=== PATIENT | female | born 1980 | race Caucasian/White ===

== ENCOUNTER 2020-12-31 08:19 | Emergency (ER) | payer MEDICAID, OTHER ==
[~2020-12-31] VITALS: Ht 160 cm; Wt 46.8 kg
[2020-12-31 08:41] VITALS: BP 120/77
[2020-12-31] MEDS ORDERED: IBUP-1984 PO (09:57)
[2020-12-31] MEDS ORDERED: CLIN300C54 PO (09:57)
[2020-12-31] MEDS ORDERED: HYDR-3964 PO (09:58)
== END 2020-12-31 10:13 | disposition home or self-care (01) ==
LOC: ER 08:19
DX: K04.7 Periapical abscess without sinus (principal); R11.0 Nausea; K08.89 Other specified disorders of teeth and supporting structures; R22.0 Localized swelling, mass and lump, head; Z88.1 Allergy status to other antibiotic agents; Z79.2 Long term (current) use of antibiotics
CPT/HCPCS: 99283

== ENCOUNTER 2023-06-06 22:38 | Emergency (ER) | payer MEDICAID, OTHER ==
[~2023-06-06] VITALS: Ht 160 cm; Wt 46.8 kg
[2023-06-07] MEDS ORDERED: CLIN300C63 PO (03:09)
[2023-06-07] MEDS ORDERED: CEPH-585 PO (03:09)
[2023-06-07] MEDS: cephalexin 500mg capsule PO ONE (03:44)
[2023-06-07] MEDS: ondansetron 4mg rapidly disintigrating tab PO ONE (03:44)
[2023-06-07] MEDS: clindamycin 150mg capsule PO ONE (03:45)
[2023-06-07] MEDS: TETanus/Pertussis (Acell)/Diphther VAC/PF (Tdap-Adult) 0.5ml syringe IMVAC ONE (03:46)
[2023-06-07 04:24] VITALS: BP 123/68; PULSE 86; RESP 16; TEMP 99; O2SAT 99
[2023-06-07] MEDS ORDERED: IBUP-1986 PO (04:34)
[2023-06-07] MEDS ORDERED: ONDA8TAB13 PO (04:34)
== END 2023-06-07 04:31 | disposition home or self-care (01) ==
LOC: ER 22:39
DX: L03.211 Cellulitis of face (principal); Z88.1 Allergy status to other antibiotic agents
CPT/HCPCS: 90471; 90715; 99283; 99284

== ENCOUNTER 2024-04-16 11:57 | Emergency (ER) | payer MEDICAID ==
[~2024-04-16] VITALS: Ht 160 cm; Wt 63.6 kg
[~2024-04-16 11:57] MED LIST: IBUP-1986 PO; ONDA-245 PO
[2024-04-16 13:35] LABS: URINE HCG NEGATIVE (NEG)
[2024-04-16 13:36] VITALS: TEMP 97.8
[2024-04-16 13:43] LABS: URINE AMPHETAMINE SCREEN POSITIVE (Neg); URINE BARBITUATE SCREEN NEGATIVE (Neg); URINE BENZODIAZEPINES SCREEN NEGATIVE (Neg); URINE CANNABINOID SCREEN POSITIVE (Neg); URINE COCAINE SCREEN NEGATIVE (Neg); URINE METHADONE SCREEN POSITIVE (Neg); URINE OPIATE SCREEN NEGATIVE (Neg); URINE PHENCYCLIDINE SCREEN NEGATIVE (Neg)
[2024-04-16 14:34] LABS: BILIRUBIN,URINE NEGATIVE (Neg); CLARITY,URINE CLEAR (Clear); COLOR,URINE YELLOW (Yellow); GLUCOSE, URINE NEGATIVE (Neg); KETONES,URINE NEGATIVE (Neg); LEUKOCYTE ESTERASE ,URINE SMALL (Neg); NITRITES, URINE NEGATIVE (Neg); OCCULT BLOOD,URINE NEGATIVE (Neg); PROTEIN,URINE NEGATIVE (Neg); UROBILINOGEN,URINE 0.2 E.U/dL (0.2-1.0)
[2024-04-16 14:35] LABS: RBC,URINE 0-2 /HPF (0-2); UA COLLECTION TYPE CLN CATCH MIDSTREAM
[2024-04-16 14:36] LABS: BACTERIA,URINE FEW /HPF (Neg); MUCUS STRANDS FEW /LPF (Neg); SQUAMOUS EPITHELIAL CELL,UR FEW /LPF (FEW)
[2024-04-16 15:31] LABS: BASOPHILS % (AUTO) 0.4 % (0-1); EOSINOPHILS # (AUTO) 0.1 X10'3 (0-0.9); EOSINOPHILS % (AUTO) 1.3 % (0-6); HEMATOCRIT 43.6 % (35.0-45.0); HEMOGLOBIN 14.6 g/dl (12.0-16.0); LYMPHOCYTES # (AUTO) 1.9 X10'3 (1.1-4.8); LYMPHOCYTES % (AUTO) 18.7 % (21-51); MEAN CORPUSCULAR HEMOGLOBIN 29.8 PG (27.0-31.0); MEAN CORPUSCULAR HGB CONC 33.5 g/dL (33.0-36.5); MEAN PLATELET VOLUME 8.6 FL (7.4-10.4); MONOCYTES # (AUTO) 0.6 X10'3 (0-0.9); MONOCYTES % (AUTO) 6.3 % (2-12); NEUTROPHILS # (AUTO) 7.3 X10'3 (1.8-7.7); NEUTROPHILS % (AUTO) 73.3 % (42-75); PLATELET COUNT 190 X10'3 (140-440); RED CELL DISTRIBUTION WIDTH 13.5 % (11.5-14.5); WHITE BLOOD COUNT 9.9 X10'3 (4.5-11.0)
[2024-04-16 16:00] LABS: ALBUMIN 3.6 G/DL (3.4-5.0); ANION GAP 11 (8-16); BLOOD UREA NITROGEN 10 MG/DL (7-18); CALCIUM 8.4 MG/DL (8.5-10.1); CHLORIDE 102 MMOL/L (99-107); GLUCOSE 105 MG/DL (70-104); SODIUM 137 MMOL/L (135-145); TOTAL CARBON DIOXIDE 23.8 MMOL/L (24-32); eCRCL 148 ML/MIN; eGFR > 90 ML/MIN
[2024-04-16] MEDS: methylnaltrexone br 12mg/0.6ml inj***SubQ only SQ STA (16:11)
[2024-04-16] MEDS: sennosides/docusate sodium tablet PO STA (16:11)
[2024-04-16] MEDS: ketorolac trometh 30MG/ML vial 30 MG/ML VIAL IM ONE (16:12)
[2024-04-16] MEDS: polyethylene glycol 3350 17gm powd pack PO STA (16:12)
[2024-04-16] MEDS ORDERED: SENN-36 PO (16:37)
[2024-04-16] MEDS ORDERED: POLY17PO10 PO (16:37)
[2024-04-16 16:53] VITALS: BP 124/71; PULSE 90; RESP 16; O2SAT 98
== END 2024-04-16 16:56 | disposition home or self-care (01) ==
LOC: ER 11:58
DX: M54.59 Other low back pain (principal); K59.03 Drug induced constipation; F17.200 Nicotine dependence, unspecified, uncomplicated; Z88.1 Allergy status to other antibiotic agents; Z79.1 Long term (current) use of non-steroidal anti-inflammatories (NSAID); Z79.899 Other long term (current) drug therapy
CPT/HCPCS: 36415; 74176; 80048; 80305; 81001; 81025; 85025; 96372; 99285; J1885; J2212